=== PATIENT | male | born 1945 ===

== ENCOUNTER → 2019-12-19 | Outpatient (REF) | payer MEDICARE, OTHER ==
[2019-12-19 17:50] LABS: TOTAL PROTEIN 7.1 GM/DL (6.4-8.2)
[2019-12-19 18:01] LABS: VITAMIN B12 LEVEL 1082 PG/ML
[2019-12-19 18:02] LABS: FOLATE 13.9 NG/ML
[2019-12-20 11:23] LABS: ALBUMIN % 49.2 % (55.8-66.1)
[2019-12-20 11:24] LABS: ALBUMIN 3.49 GM/DL (3.29-5.55); ALPHA-1-GLOBULIN % 2.8 % (2.9-4.9); ALPHA-2-GLOBULINS 0.55 GM/DL (0.42-0.99); ALPHA-2-GLOBULINS % 7.8 % (7.1-11.8); BETA-1-GLOBULINS 0.53 GM/DL (0.28-0.60); BETA-1-GLOBULINS % 7.5 % (4.7-7.2); BETA-2-GLOBULINS 0.45 GM/DL (0.19-0.55); BETA-2-GLOBULINS % 6.4 % (3.2-6.5); GAMMA GLOBULIN % 26.3 % (11.1-18.8); GAMMA GLOBULINS 1.87 GM/DL (0.65-1.58)
== END ==
LOC: M LABNEURO 13:04
PROVIDERS: ATTEND Psychiatry & Neurology Neurology
DX: E83.01 Wilson's disease (principal); E51.9 Thiamine deficiency, unspecified